=== PATIENT | male | born 1995 | race Caucasian/White ===

== ENCOUNTER 2016-07-15 02:44 | Emergency (ER) | payer SELFPAY ==
[2016-07-15 03:25] LABS: BASOPHIL % 0.6 % (0-2); PLATELET COUNT 244 x10^3mcL (130-400); RED CELL DISTRIBUTION WIDTH 12.9 % (11.5-14.5)
[2016-07-15 03:36] LABS: CALCIUM 8.8 mg/dL (8.5-10.1); CARBON DIOXIDE 27.6 mmol/L (21-32); CHLORIDE SERUM 101 mmol/L (98-107); CREATININE SERUM 0.8 mg/dL (0.7-1.3); GFR1 > 60 mL/min; GLUCOSE SERUM 109 mg/dL (74-106); POTASSIUM SERUM 3.6 mmol/L (3.5-5.1); SODIUM SERUM 140 mmol/L (136-145)
[2016-07-15 03:47] LABS: ALBUMIN 4.4 g/dL (3.4-5.0); ALKALINE PHOSPHATASE 85 U/L (46-116); ALT/SGPT 35 U/L (16-63); AST/SGOT 30 U/L (15-37); BILIRUBIN TOTAL 0.38 mg/dL (0.20-1.00)
[2016-07-15 03:54] LABS: TOTAL PROTEIN, SERUM 8.3 g/dL (6.4-8.2)
[2016-07-15 05:28] VITALS: BP 126/84
== END 2016-07-15 05:28 | disposition home or self-care (01) ==
LOC: ED 02:44
PROVIDERS: Emergency Medicine
DX: F10.129 Alcohol abuse with intoxication, unspecified (principal)
CPT/HCPCS: J1885; Q0092

== ENCOUNTER 2016-07-23 02:50 | Emergency (ER) | payer SELFPAY ==
[~2016-07-23] VITALS: Ht 170.2 cm; Wt 81.6 kg
[2016-07-23 03:54] VITALS: BP 136/84
== END 2016-07-23 03:55 | disposition left against medical advice (07) ==
LOC: ED 02:50
DX: Z53.21 Procedure and treatment not carried out due to patient leaving prior to being seen by health care provider (principal)
CPT/HCPCS: Q0092

== ENCOUNTER 2017-07-18 12:21 | Emergency (ER) | payer MEDICAID ==
[~2017-07-18] VITALS: Ht 172.7 cm; Wt 82.1 kg
[2017-07-18 12:23] VITALS: Ht 172.7 cm; Wt 82.1 kg
[2017-07-18 12:59] LABS: CALCIUM 9.1 mg/dL (8.5-10.1); CARBON DIOXIDE 29.7 mmol/L (21-32); CHLORIDE SERUM 101 mmol/L (98-107); GFR1 > 60 mL/min; GLUCOSE SERUM 108 mg/dL (74-106); POTASSIUM SERUM 3.7 mmol/L (3.5-5.1); SODIUM SERUM 138 mmol/L (136-145)
[2017-07-18 13:11] LABS: AMPHETAMINE QUAL UR NONE DETECTED (NEG <=1000)
[2017-07-18 14:18] VITALS: BP 129/80
== END 2017-07-18 14:18 | disposition home or self-care (01) ==
LOC: ED 12:21
PROVIDERS: Emergency Medicine
DX: R07.89 Other chest pain (principal); Z88.8 Allergy status to other drugs, medicaments and biological substances
CPT/HCPCS: 87491; 87591; Q0092

== ENCOUNTER 2017-07-19 12:27 | Emergency (ER) | payer MEDICAID ==
[~2017-07-19] VITALS: Ht 175.3 cm; Wt 81.3 kg
[2017-07-19 12:31] VITALS: BP 132/73
== END 2017-07-19 13:44 | disposition home or self-care (01) ==
LOC: ED 12:27
DX: R51 Headache (principal); R11.0 Nausea; R07.89 Other chest pain; R22.0 Localized swelling, mass and lump, head; Z88.8 Allergy status to other drugs, medicaments and biological substances
CPT/HCPCS: J1885